=== PATIENT | female | born 1995 | race Caucasian/White ===

== ENCOUNTER 2017-03-17 11:00 | Emergency (ER) | payer MEDICAID, OTHER ==
[2017-03-17 11:16] VITALS: TEMP 98.3; O2SAT 100
[2017-03-17] MEDS ORDERED: Sodium Chloride 0.9% 1,000 ML IV ONE (11:55)
[2017-03-17] MEDS ORDERED: Sodium Chloride 0.9% 1,000 ML ONE (12:08)
[2017-03-17 12:11] LABS: BASO # 0.1 K/uL (0.0-0.2); BASO % 0.8 % (0.0-2.0); EOS # 0.7 K/uL (0.0-0.7); EOS % 6.5 % (0.0-4.0); HEMATOCRIT 39.9 % (34.0-47.0); LYMPH # 3.2 K/uL (1.0-4.3); LYMPH % 30.9 % (20.0-40.0); MEAN CELL VOLUME 83.6 fL (81.0-99.0); MEAN CORPUSCULAR HEMOGLOBIN 27.2 pg (27.0-31.0); MEAN CORPUSCULAR HGB CONC 32.5 g/dL (33.0-37.0); MEAN PLATELET VOLUME 9.3 fL (7.2-11.7); MONO % 9.2 % (0.0-10.0); RED CELL DISTRIBUTION WIDTH 16.2 % (11.5-14.5); WHITE BLOOD COUNT 10.5 K/uL (4.8-10.8)
[2017-03-17 12:23] LABS: CHLORIDE 103 mmol/L (98-107); POTASSIUM 3.9 mmol/L (3.6-5.2); SODIUM 140 mmol/L (132-148)
[2017-03-17 12:26] LABS: BLOOD UREA NITROGEN 8 mg/dL (7-17); CALCIUM 9.6 mg/dl (8.6-10.4); CARBON DIOXIDE 21 mmol/L (22-30); GFR AFRICAN-AMERICAN > 60; GLUCOSE,RANDOM 85 mg/dL (65-105)
[2017-03-17] MEDS ORDERED: Acetaminophen-Codeine 300/30 mg Tab PO STA (13:57)
[2017-03-17] MEDS ORDERED: Acetaminophen-Codeine 300/30 mg Tab PO ONE (14:01)
--- NOTE | 2017-03-17 14:14 | C.PDOC ---
History Of Present Illness 21 y/o female presents to ED for evaluation of pelvic and lower back pain since yesterday since getting her period. Patient states that her cramping is heavier than usual. Patient took tylenol at home with minimawl relief. She denies nausea/vomiting/diarrhea, dysuria, fever/chills. Time Seen by Provider: 03/17/17 11:11 Chief Complaint (Nursing): Female Genitourinary History Per: Patient History/Exam Limitations: no limitations Onset/Duration Of Symptoms: Days (1) Current Symptoms Are (Timing): Still Present Severity: Moderate Quality Of Discomfort: Cramping Associated Symptoms: Back Pain (lower). denies: Fever, Chills, Loss Of Appetite , Chest Pain, Constipation, Urinary Symptoms Alleviating Factors: None Past Medical History Reviewed: Historical Data, Nursing Documentation, Vital Signs Vital Signs: Last Vital Signs Temp 98.3 F 03/17/17 14:20 Pulse 71 03/17/17 14:20 Resp 18 03/17/17 14:20 BP 101/66 03/17/17 14:20 Pulse Ox 100 03/17/17 14:28 - Medical History PMH: Asthma Family History: States: No Known Family Hx - Social History Hx Tobacco Use: No Hx Alcohol Use: No Hx Substance Use: No - Immunization History Hx Tetanus Toxoid Vaccination: Yes Hx Influenza Vaccination: Yes Hx Pneumococcal Vaccination: Yes Review Of Systems Except As Marked, All Systems Reviewed And Found Negative. Constitutional: Negative for: Fever, Chills Cardiovascular: Negative for: Chest Pain, Palpitations Respiratory: Negative for: Cough, Shortness of Breath Gastrointestinal: Negative for: Nausea, Vomiting, Abdominal Pain, Diarrhea Genitourinary: Positive for: Pelvic Pain. Negative for: Dysuria, Frequency Musculoskeletal: Positive for: Back Pain (lower) Skin: Negative for: Rash Physical Exam - Physical Exam Appears: Well, Non-toxic, Other (In mild pain) Skin: Normal Color, Warm, Dry Eye(s): bilateral: Normal Inspection Oral Mucosa: Moist Cardiovascular: Rhythm Regular Respiratory: Normal Breath Sounds, No Rales, No Rhonchi, No Wheezing Gastrointestinal/Abdominal: Bowel Sounds, Soft, Tenderness (mild suprapubic TTP) , No Guarding, No Rebound, Other ((-)McBurney's) Back: Normal Inspection, No CVA Tenderness Extremity: Bilateral: Atraumatic, Normal ROM Neurological/Psych: Oriented x3 ED Course And Treatment - Laboratory Results Result Diagrams: 03/17/17 12:07 03/17/17 12:07 O2 Sat by Pulse Oximetry: 100 (on RA) Pulse Ox Interpretation: Normal Progress Note: Plan: Blood work, UPreg ordered and reviewed. Patient given IV NS bolus, IV toradol. 14:15- Patient states her pain has improved and she feels better. Upreg (-), blood work unremarkable. Patient confirms symptoms are consistent with prior menstrual pain but stonger in intensity. Rx given for naprosyn and tylenol #3. Patient instructed to follow up with soil science teacher within 1 week, and understands she should return to Ed if symptoms worsen. Reevaluation Time: 13:50 Reassessment Condition: Improved (On reassessment, patient still c/o pain - PO tylenol #3 ordered.) Disposition Counseled Patient/Family Regarding: Diagnosis, Need For Followup, Rx Given - Disposition Referrals: [facility] [Outside] Disposition: HOME/ ROUTINE Disposition Time: 14:15 Condition: STABLE Additional Instructions: SEGUIMIENTO CON CANALES OB / CHEMICAL PROCESSING TECHNICIAN DENTRO DE 1 SEMANA USE MEDICAMENTOS PARA EL DOLOR VICTOR HUGO SEA NECESARIO DEVUELVA A LA MARY DE EMERGENCIA SI LOS SNTOMAS EMPEORARAN Prescriptions: Acetaminophen with Codeine [Tylenol with Codeine #3 Tablet] 1 each PO Q6 PRN # 12 tablet PRN Reason: pain Naproxen [Naprosyn Tab] 375 mg PO BID PRN #20 tab PRN Reason: pain Instructions: Dysmenorrhea (ED) Forms: [employer] (Zambian) Print Language: KYRGYZ - POA Present On Arrival: None - Clinical Impression Clinical Impression: Dysmenorrhea - Scribe Statement The provider has reviewed the documentation as recorded by the Scribe Zee Maza All medical record entries made by the Scribe were at my direction and personally dictated by me. I have reviewed the chart and agree that the record accurately reflects my personal performance of the history, physical exam, medical decision making, and the department course for this patient. I have also personally directed, reviewed, and agree with the discharge instructions and disposition.
[2017-03-17 14:21] VITALS: BP 101/66; PULSE 71; RESP 18
== END 2017-03-17 14:15 | disposition home or self-care (01) ==
LOC: C.ER 11:00
DX: N94.6 Dysmenorrhea, unspecified (principal)
CPT/HCPCS: 80048; 84703; 85025; 96361; 96374; 99285; J1885; J7040

== ENCOUNTER 2018-05-18 22:16 | Emergency (ER) | payer MEDICAID, OTHER ==
[2018-05-18 22:25] VITALS: BP 132/88; PULSE 101; RESP 20; TEMP 98.9; O2SAT 99
--- NOTE | 2018-05-18 23:24 | C.PDOC ---
Time Seen by Provider: 05/18/18 22:37 Chief Complaint (Nursing): Dental Pain Past Medical History Vital Signs: Last Vital Signs Temp 98.9 F 05/18/18 22:17 Pulse 101 H 05/18/18 22:17 Resp 20 05/18/18 22:17 BP 132/88 05/18/18 22:17 Pulse Ox 99 05/18/18 22:17 - Medical History PMH: Asthma Family History: States: Unknown Family Hx - Social History Hx Tobacco Use: No Hx Alcohol Use: No Hx Substance Use: No - Immunization History Hx Tetanus Toxoid Vaccination: Yes Hx Influenza Vaccination: Yes Hx Pneumococcal Vaccination: Yes ED Course And Treatment O2 Sat by Pulse Oximetry: 99 Medical Decision Making Medical Decision Making: pt peaks [place] only, Told her I was going to get transaltor; when I returned, pt had left. not found in ED. Disposition - Disposition Disposition: LEFT W/O BEING SEEN - ER ONLY Disposition Time: 23:23 Condition: STABLE Forms: [employer] (Hungarian) - Clinical Impression Clinical Impression: Pain, dental, Patient left without being seen
== END 2018-05-18 23:36 | disposition left against medical advice (07) ==
LOC: C.ER 22:16
DX: Z02.89 Encounter for other administrative examinations (principal); K08.89 Other specified disorders of teeth and supporting structures